=== PATIENT | female | born 1985 | race Caucasian/White ===

== ENCOUNTER 2018-05-07 16:59 | Inpatient (IN) | payer OTHER ==
[~2018-05-07] VITALS: Ht 170.2 cm; Wt 144.0 kg
[2018-05-11] MEDS: D5%-LACTATED RINGERS 1,000 ML IV SCH (16:06)
[2018-05-11] MEDS ORDERED: OXYTOCIN 30U/ 0.9% NaCL 500ML 500 ML IV ONE (16:06)
[2018-05-11] MEDS ORDERED: OXYTOCIN 30U/ 0.9% NaCL 500ML 500 ML IV PRN (16:06)
[2018-05-11] MEDS ORDERED: OXYTOCIN 30U/ 0.9% NaCL 500ML 500 ML ONE (16:13)
[2018-05-11] MEDS ORDERED: MISOPROSTOL 200 MCG TABLET ONE (16:13)
[2018-05-11] MEDS ORDERED: LIDOCAINE/PF 1%, 30ML ONE (16:13)
[2018-05-11] MEDS ORDERED: FENTANYL PF 100 MCG/2ML IVPush PRN (16:30)
[2018-05-11] MEDS ORDERED: SODIUM CITRATE/CITRIC ACID 30 ML UDC PO PRN (16:30)
[2018-05-11] MEDS ORDERED: ONDANSETRON 2MG/ML, 2ML IVPush PRN (16:30)
[2018-05-11] MEDS ORDERED: ALUMINUM/MAG/SIMETHICONE 30 ML UDC PO PRN (16:30)
[2018-05-11] MEDS: LACTATED RINGERS 1,000 ML IV SCH ×3 (16:31→20:06)
[2018-05-11 16:42] LABS: BASOPHILS # (AUTO) 0.04 x10^3/uL (0-0.1); BASOPHILS % (AUTO) 0 % (0-1); EOSINOPHILS # (AUTO) 0.07 x10^3/uL (0-0.4); EOSINOPHILS % (AUTO) 1 % (1-7); LYMPHOCYTES % (AUTO) 14 % (22-44); MD NO; MEAN CORPUSCULAR HEMOGLOBIN 28.3 pg (27.0-34.8); MEAN CORPUSCULAR HGB CONC 33.1 g/dL (32.4-35.8); MEAN CORPUSCULAR VOLUME 85.4 fL (80-100); MEAN PLATELET VOLUME 9.1 fL (7.4-10.4); MONOCYTES # (AUTO) 0.59 x10^3/uL (0.2-0.8); MONOCYTES % (AUTO) 4 % (2-9); NEUTROPHILS # (AUTO) 10.75 x10^3/uL (1.8-6.8); NEUTROPHILS % (AUTO) 81 % (42-75); PLATELET COUNT 268 x10^3/uL (130-400); RED BLOOD COUNT 4.06 x10^6/uL (3.82-5.3); RED CELL DISTRIBUTION WIDTH 14.5 % (9.6-15.2)
[2018-05-11 17:24] LABS: MICROSCOPIC INDICATED
[2018-05-11] MEDS ORDERED: CALCIUM CARBONATE 500 MG TAB.CHEW ONE (18:47)
[2018-05-11] MEDS: CALCIUM CARBONATE 500 MG TAB.CHEW PO PRN (18:49)
[2018-05-11] MEDS ORDERED: FENTANYL/BUPIV./NS/PF 250 ML EPIDCONT ONE ×2 (19:27→19:35)
[2018-05-11] MEDS ORDERED: BUPIVACAINE 0.25% ONE (19:36)
[2018-05-11] MEDS: FENTANYL/BUPIV./NS/PF 250 ML EPIDCONT SCH (20:42)
[2018-05-11] MEDS ORDERED: LACTATED RINGERS 1,000 ML IVBOLUS PRN (21:00)
[2018-05-11] MEDS ORDERED: EPHEDRINE 50 MG/ML, 1ML IVPush PRN (21:00)
[2018-05-11] MEDS ORDERED: NALOXONE 0.4 MG/ML, 1ML IVPush PRN (21:00)
[2018-05-12 01:30] VITALS: BP 133/79
[2018-05-12] MEDS: LACTATED RINGERS 1,000 ML IV SCH ×4 (03:10→20:42)
[2018-05-12] MEDS: D5%-LACTATED RINGERS 1,000 ML IV SCH ×3 (03:41→16:06)
[2018-05-12] MEDS: CALCIUM CARBONATE 500 MG TAB.CHEW PO PRN (05:08)
[2018-05-12] MEDS ORDERED: ONDANSETRON 2MG/ML, 2ML ONE (06:49)
[2018-05-12] MEDS ORDERED: ACETAMINOPHEN 500 MG TABLET PO ONE (12:30)
[2018-05-12] MEDS ORDERED: GENTAMICIN PER PHARMACY MC PRN (12:30)
[2018-05-12] MEDS ORDERED: ACETAMINOPHEN 500 MG TABLET ONE (12:33)
[2018-05-12] MEDS: AMPICILLIN 2 GM in SODIUM CHLORIDE 0.9% 100 ML IV SCH ×2 (12:36→17:39)
[2018-05-12] MEDS ORDERED: PHARMACOKINETIC MONITORING MC PRN (13:00)
[2018-05-12 13:08] LABS: MEAN CORPUSCULAR HEMOGLOBIN 28.1 pg (27.0-34.8); MEAN CORPUSCULAR HGB CONC 33.2 g/dL (32.4-35.8); MEAN CORPUSCULAR VOLUME 84.6 fL (80-100); MEAN PLATELET VOLUME 9.2 fL (7.4-10.4); PLATELET COUNT 213 x10^3/uL (130-400); RED BLOOD COUNT 4.56 x10^6/uL (3.82-5.3); RED CELL DISTRIBUTION WIDTH 15.1 % (9.6-15.2)
[2018-05-12] MEDS: GENTAMICIN 200 MG in SODIUM CHLORIDE 0.9% 50 ML IV SCH ×2 (13:12→21:23)
[2018-05-12 13:13] LABS: ALANINE AMINOTRANSFERASE 24 U/L (12-78); ALBUMIN 2.2 g/dL (3.4-5.0); ANION GAP 11 mmol/L (5-15); CALCIUM 8.6 mg/dL (8.5-10.1); CHLORIDE 105 mmol/L (98-107); CREATININE 1.02 mg/dL (0.55-1.02)
[2018-05-12 13:15] LABS: ALKALINE PHOSPHATASE 114 U/L (45-117); BILIRUBIN,TOTAL 1.1 mg/dL (0.2-1.0); TOTAL PROTEIN 6.4 g/dL (6.4-8.2)
[2018-05-12 13:32] LABS: MD YES
[2018-05-12 13:35] LABS: BANDS%(MANUAL) 9 % (0-7); LYMPHS% (MANUAL) 6 % (22-44); MONOS% (MANUAL) 1 % (2-9); SEGS% (MANUAL) 84 % (42-75)
[2018-05-12 13:36] LABS: <PLATELET ESTIMATE> ADEQUATE; <RBC MORPHOLOGY> NORMAL; LARGE PLATELETS 1+
[2018-05-12] MEDS ORDERED: FENTANYL PF 100 MCG/2ML ONE (15:14)
[2018-05-12] MEDS: FENTANYL/BUPIV./NS/PF 250 ML EPIDCONT SCH (17:32)
[2018-05-12] MEDS ORDERED: OXYTOCIN 30U/ 0.9% NaCL 500ML 500 ML ONE (18:09)
[2018-05-12] MEDS ORDERED: METHYLERGONOVINE 0.2 MG/ML IM ONE (18:09)
[2018-05-12] MEDS: OXYTOCIN 30U/ 0.9% NaCL 500ML 500 ML IV SCH ×4 (18:36→21:28)
[2018-05-12] MEDS ORDERED: CALCIUM CARBONATE 500 MG TAB.CHEW PO PRN (19:00)
[2018-05-12] MEDS ORDERED: ACETAMINOPHEN 325 MG TABLET PO PRN ×2 (19:00)
[2018-05-12] MEDS ORDERED: BISACODYL 10 MG SUPP PR PRN (19:00)
[2018-05-12] MEDS ORDERED: HYDROcodone/APAP 5/325 TABLET PO PRN ×2 (19:00)
[2018-05-12] MEDS ORDERED: METHYLERGONOVINE 0.2 MG/ML IM PRN (19:00)
[2018-05-12] MEDS ORDERED: ONDANSETRON 2MG/ML, 2ML IV PRN (19:00)
[2018-05-12] MEDS ORDERED: MISOPROSTOL 200 MCG TABLET PR ONE (19:30)
[2018-05-12 21:00] VITALS: BP 93/62
[2018-05-12] MEDS: DOCUSATE 100 MG CAPSULE PO PRN (21:23)
[2018-05-12] MEDS: IBUPROFEN 600 MG TABLET PO PRN (21:23)
[2018-05-13] MEDS: AMPICILLIN 2 GM in SODIUM CHLORIDE 0.9% 100 ML IV SCH (00:34)
[2018-05-13 01:11] VITALS: BP 117/70
[2018-05-13 02:48] LABS: MEAN CORPUSCULAR HEMOGLOBIN 28.8 pg (27.0-34.8); MEAN CORPUSCULAR HGB CONC 33.9 g/dL (32.4-35.8); MEAN CORPUSCULAR VOLUME 84.8 fL (80-100); MEAN PLATELET VOLUME 9.3 fL (7.4-10.4); PLATELET COUNT 234 x10^3/uL (130-400); RED BLOOD COUNT 3.64 x10^6/uL (3.82-5.3); RED CELL DISTRIBUTION WIDTH 14.7 % (9.6-15.2)
[2018-05-13 03:13] LABS: MD YES
[2018-05-13 03:16] LABS: BAND#(MANUAL) 0.93 x10^3/uL; BANDS%(MANUAL) 4 % (0-7); LYMPH#(MANUAL) 1.17 x10^3/uL (1-3.4); LYMPHS% (MANUAL) 5 % (22-44); MONOS#(MANUAL) 0.47 x10^3/uL (0.3-2.7); MONOS% (MANUAL) 2 % (2-9); SEG#(MANUAL) 20.74 x10^3/uL (1.8-6.8); SEGS% (MANUAL) 89 % (42-75)
[2018-05-13 03:17] LABS: <PLATELET ESTIMATE> ADEQUATE; <RBC MORPHOLOGY> NORMAL; LARGE PLATELETS 1+
[2018-05-13] MEDS: OXYTOCIN 30U/ 0.9% NaCL 500ML 500 ML IV SCH ×2 (04:36→14:36)
[2018-05-13 05:00] VITALS: BP 105/70
[2018-05-13] MEDS: LEVOTHYROXINE 75 MCG TABLET PO SCH (05:57)
[2018-05-13 07:40] VITALS: BP 102/66
[2018-05-13] MEDS: PRENATAL VIT/IRON/FA 1 EACH TABLET PO SCH (09:20)
[2018-05-13] MEDS: DOCUSATE 100 MG CAPSULE PO PRN (09:20)
[2018-05-13] MEDS: IBUPROFEN 600 MG TABLET PO PRN ×2 (09:56→16:44)
[2018-05-13 12:30] VITALS: BP 116/67
[2018-05-13 14:30] VITALS: BP 104/64
[2018-05-13 19:25] VITALS: BP 111/75
[2018-05-14] MEDS: IBUPROFEN 600 MG TABLET PO PRN (05:46)
[2018-05-14] MEDS: LEVOTHYROXINE 75 MCG TABLET PO SCH (05:47)
[2018-05-14] MEDS: PRENATAL VIT/IRON/FA 1 EACH TABLET PO SCH (07:19)
[2018-05-14] MEDS: DOCUSATE 100 MG CAPSULE PO PRN (07:19)
[2018-05-14 07:33] VITALS: BP 118/68
[2018-05-14] MEDS ORDERED: IBUP-1222 PO (14:32)
== END 2018-05-14 15:05 | disposition home or self-care (01) | DRG 775 ==
LOC: LDIP 05-11 15:13 → 2NW 05-12 20:26
PROVIDERS: ADMIT Obstetrics & Gynecology; ATTEND Obstetrics & Gynecology
PROC: 10E0XZZ Delivery of Products of Conception, External Approach (ICD-10-PCS; principal; 2018-05-13)
PROC: 0KQM0ZZ Repair Perineum Muscle, Open Approach (ICD-10-PCS; 2018-05-13)
PROC: 10907ZC Drainage of Amniotic Fluid, Therapeutic from Products of Conception, Via Natural or Artificial Opening (ICD-10-PCS; 2018-05-13)
PROC: 3E0R3BZ Introduction of Anesthetic Agent into Spinal Canal, Percutaneous Approach (ICD-10-PCS; 2018-05-13)
PROC: 00HU33Z Insertion of Infusion Device into Spinal Canal, Percutaneous Approach (ICD-10-PCS; 2018-05-13)
DX: O76 Abnormality in fetal heart rate and rhythm complicating labor and delivery (principal); O41.1230 Chorioamnionitis, third trimester, not applicable or unspecified; Z68.42 Body mass index [BMI] 45.0-49.9, adult; O41.03X0 Oligohydramnios, third trimester, not applicable or unspecified; E03.9 Hypothyroidism, unspecified; E66.01 Morbid (severe) obesity due to excess calories; O63.1 Prolonged second stage (of labor); O69.81X0 Labor and delivery complicated by cord around neck, without compression, not applicable or unspecified; O70.1 Second degree perineal laceration during delivery; O77.0 Labor and delivery complicated by meconium in amniotic fluid; O99.214 Obesity complicating childbirth; O99.284 Endocrine, nutritional and metabolic diseases complicating childbirth; Z37.0 Single live birth; Z3A.40 40 weeks gestation of pregnancy
CPT/HCPCS: 36415; 80053; 81001; 82803; 85025; 86850; 86900; J0290; J2405; J1580; J2590; J3010; J7120; J7121